=== PATIENT | male | born 1955 | race Caucasian/White ===

== ENCOUNTER 2023-10-30 11:00 | Emergency (ER) | payer SELFPAY ==
[2023-10-30] VITALS (15 sets, daily range): BP systolic 141–197; BP diastolic 95–120; PULSE 73–116; RESP 16–24; TEMP 36.6–36.8; O2SAT 96–100; BMI 24.0
--- NOTE | 2023-10-30 11:08 | DI.RAD.S_ITS ---
PROCEDURE: XR CHEST 1V INDICATIONS: chest pain TECHNIQUE: One view of the chest was acquired. COMPARISON: None. FINDINGS: Surgical changes and devices: None. Lungs and pleura: Lungs are clear. No pleural effusions or pneumothorax. Mediastinum: Mediastinal contours appear normal. Heart size is normal. Bones and chest wall: No suspicious bony lesions. Overlying soft tissues appear unremarkable. Metallic density near the left axilla is likely external to the patient. IMPRESSION: No acute cardiopulmonary abnormality is seen. Dictated by: Parvez Mcghee M.D. on 10/30/2023 at 10:28 Approved by: Parvez Mcghee M.D. on 10/30/2023 at 10:31
--- NOTE | 2023-10-30 11:26 | ED.CHESTPAIN ---
HPI - Chest Pain General Chief Complaint: Chest Pain Stated Complaint: CHEST PAIN BP HIGH Time Seen by Provider: 10/30/23 11:24 Source: patient and family Mode of arrival: Ambulatory Limitations: no limitations History of Present Illness HPI narrative: Patient is a 68-year-old male history of hypertension paroxysmal atrial fibrillation multiple TIAs on Eliquis presenting today with chest pain. He reports that he currently has a ZIO patch on and is followed by Dr. Kemp cardiology. He reports that this morning he went into AFib with RVR heart rate was in the 140s blood pressure was high. He took a metoprolol. He reports his chest pain is better. He states that while he was cooking breakfast this morning he had some chest discomfort it went to both arms. He got extremely weak and tired had to sit down. It lasted for about 1 hour. He is in atrial fibrillation heart rate is 100-120. Blood pressure is noted to be high. He says this morning when he had severe chest pain he had bilateral arm pain. As well. He reports that he was having some mild shortness of breath and orthopnea last night. But was able to sleep without any significant problem. Denies any lower extremity edema no significant dyspnea with exertion. No abdominal pain nausea or vomiting Patient reports [place] he got severely ill with COVID. At some point he had a seizure or syncopal episode he was admitted at [facility] where he reports he had chest pain. He would multiple EKGs that I am able to look at and does show sinus rhythm an echocardiogram shows an EF of 60-65%. He had a CT chest abdomen pelvis should not show any sort of acute abnormality. Related Data Home Medications Medication Instructions Recorded Confirmed apixaban 5 mg tablet (Eliquis) 5 mg PO BID 10/30/23 10/30/23 hydrochlorothiazide 10/30/23 losartan 25 mg tablet 25 mg PO DAILY PRN blood pressure 10/30/23 10/30/23 potassium chloride DAILY 10/30/23 Allergies Allergy/AdvReac Type Severity Reaction Status Date / Time No Known Drug Allergies Allergy Verified 10/30/23 11:20 Patient History Medical History Afib TIA (transient ischemic attack) Social History (Reviewed 05/19/24 @ 11:35 by SARAH Mckee Smoking Status: Never smoker Smoking Status: Never smoker Substance Use Type: does not use Exam Initial Vital Signs Initial Vital Signs: Vital Signs Temperature 97.8 F 10/30/23 11:10 Pulse Rate 116 H 10/30/23 11:10 Respiratory Rate 18 10/30/23 11:10 Blood Pressure 146/101 H 10/30/23 11:10 Pulse Oximetry 96 10/30/23 11:10 Oxygen Delivery Method Room Air 10/30/23 11:10 GENERAL: Alert well-appearing 68-year-old male and in no acute distress. HEENT: Head atraumatic,EOMI, pupils reactive, face symmetric, moist mucous membranes CARDIOVASCULAR: Irregularly irregular RESPIRATORY: Breath sounds equal bilaterally, no wheezes rales or rhonchi. ABDOMEN: Soft, nontender. Normoactive bowel sounds all 4 quadrants. No guarding or rebound. EXTREMITIES: Normal range of motion, no clubbing or edema. Neurovascularly intact NEUROLOGICAL: Alert and oriented x4.Normal gait and speech. SKIN: Warm, dry, no laceration, no petechiae, no rashes or lesions. Course Orders Ordered: ED Orders 10/30/23 11:08 XR chest 1V Stat EKG-12 Lead Stat 10/30/23 11:30 Complete Blood Count AUTO DIFF Stat Comprehensive Metabolic Panel Stat Lipase Stat Magnesium Stat PTT Partial Thromboplastin Arnol Stat Prothrombin Time INR Stat Troponin & CK Cardiac Panel Stat 10/30/23 13:28 Troponin I Stat Discontinued Medications Aspirin (Aspirin 81 Mg Chew Tab) 324 mg PO NOW ONE Stop: 10/30/23 11:09 Last Admin: 10/30/23 11:31 Dose: Not Given Documented By: Aspirin (Aspirin 81 Mg Chew Tab) 324 mg PO NOW ONE Stop: 10/30/23 12:26 Last Admin: 10/30/23 12:32 Dose: 324 mg Documented By: CARLA Heparin Sodium (Porcine) (Heparin 5,000 Unit/Ml Vial) 5,000 unit 60 unit/kg (5000 unit) IV NOW ONE Stop: 10/30/23 12:49 Last Admin: 10/30/23 13:13 Dose: 5,000 unit Documented By: CARLA Heparin Sodium/Dextrose (Heparin Drip) 25,000 unit in 500 mls @ 19.269 mls/hr IV CONT LAURA; Protocol Last Titration: 10/30/23 17:05 Dose: 12 units/kg/hr, 19.269 mls/hr Documented By: CARLA Co-signed By: FAUSTO Admin: 10/30/23 13:18 Dose: 12 units/kg/hr, 19.269 mls/hr Documented By: CARLA Co-signed By: CARLOS Vital Signs Vital signs: Vital Signs - 8 hr 10/30/23 12:00 10/30/23 12:00 10/30/23 12:30 Temperature Pulse Rate 77 75 Respiratory Rate 21 16 Blood Pressure 164/95 H Pulse Oximetry 99 99 10/30/23 13:00 10/30/23 13:30 10/30/23 13:30 Temperature Pulse Rate 78 92 H Respiratory Rate 22 21 Blood Pressure 177/111 H Pulse Oximetry 100 100 10/30/23 14:00 10/30/23 14:00 10/30/23 14:30 Temperature Pulse Rate 76 73 Respiratory Rate 23 17 Blood Pressure 164/100 H Pulse Oximetry 100 100 10/30/23 14:30 10/30/23 15:00 10/30/23 15:00 Temperature Pulse Rate 77 Respiratory Rate 17 Blood Pressure 141/97 H 162/95 H Pulse Oximetry 99 10/30/23 15:30 10/30/23 15:30 10/30/23 16:00 Temperature Pulse Rate 75 82 Respiratory Rate 17 19 Blood Pressure 168/100 H Pulse Oximetry 99 100 10/30/23 16:01 10/30/23 16:01 10/30/23 16:30 Temperature Pulse Rate 82 96 H Respiratory Rate 24 20 Blood Pressure 197/99 H Pulse Oximetry 100 100 10/30/23 16:30 10/30/23 16:36 10/30/23 16:36 Temperature 98.3 F Pulse Rate 100 H Respiratory Rate 18 Blood Pressure 165/120 H 161/105 H Pulse Oximetry 100 MDM - Chest Pain Lab Data 10/30/23 11:30 10/30/23 11:30 Labs: Lab Results 10/30/23 10/30/23 Range/Units 11:30 13:28 WBC 8.3 (4.5-11.0) X10^3/uL RBC 4.87 (4.5-5.9) X10^6/uL Hgb 14.7 (13.5-17.5) g/dL Hct 42.8 (41-53) % MCV 88.0 (80-100) fL MCH 30.2 (26-34) PG MCHC 34.3 (30-36) % RDW 13.3 (11.6-14.8) % Plt Count 266 (150-400) X10^3/uL Neut % (Auto) 77.3 H (50-75) % Lymph % (Auto) 14.4 L (25-40) % [place]lin % (Auto) 6.0 (3-14) % Eos % (Auto) 1.9 L (2-4) % Baso % (Auto) 0.4 (0-2) % Neut # (Auto) 6400 (8313-0999) /uL Lymph # (Auto) 1200 (6155-0290) /uL [place]lin # (Auto) 500 (0-900) /uL Eos # (Auto) 200 (0-450) /uL Baso # (Auto) 0 (0-100) /uL PT 17.3 H (9.4-12.5) SECONDS INR 1.5 H (0.9-1.3) APTT 41 H (25.1-36.5) SECONDS Sodium 140 (137-145) mmol/L Potassium 4.3 (3.4-5.1) mmol/L Chloride 103 (98-107) mmol/L Carbon Dioxide 30 (22-32) mmol/L BUN 17 (9-20) mg/dL Creatinine 0.92 (0.66-1.25) mg/dL Estimated GFR > 60 (>60) mL/min BUN/Creatinine Ratio 18.5 (6-22) Glucose 149 H (80-110) mg/dL Calcium 9.4 (8.4-10.2) mg/dL Magnesium 2.3 (1.6-2.3) mg/dL Total Bilirubin 1.4 H (0.2-1.3) mg/dL AST 77 H (17-59) IU/L ALT 15 (<50) IU/L Alkaline Phosphatase 97 (38-126) U/L Total Creatine Kinase 278 H (55-170) U/L Troponin I 3.250 H* 6.960 H* (0.01-0.034) ng/mL Total Protein 7.9 (6.3-8.2) g/dL Albumin 4.5 (3.5-5.0) g/dL Globulin 3.4 (1.7-4.1) g/dL Albumin/Globulin Ratio 1.3 (1.0-2.8) Lipase 56 (23-300) U/L Imaging Data Chest x-ray: Radiologist's Impression: PROCEDURE: XR CHEST 1V INDICATIONS: chest pain TECHNIQUE: One view of the chest was acquired. COMPARISON: None. FINDINGS: Surgical changes and devices: None. Lungs and pleura: Lungs are clear. No pleural effusions or pneumothorax. Mediastinum: Mediastinal contours appear normal. Heart size is normal. Bones and chest wall: No suspicious bony lesions. Overlying soft tissues appear unremarkable. Metallic density near the left axilla is likely external to the patient. IMPRESSION: No acute cardiopulmonary abnormality is seen. Dictated by: Parvez Mcghee M.D. on 10/30/2023 at 10:28 ECG Data Interpretation: Atrial fibrillation rate 101 with significant T-wave inversion in V2 and V3 Compared to previous EKGs [facility] which was normal sinus rhythm but still had persistent T-wave inversions in V2 and V3 MDM Narrative Medical decision making narrative: I discussed with patient about cardioversion. However his who is retired ICU nurse does not want him cardioverted stating that he will go right back into it he has not been cardioverted before. His rate is controlled remains in AFib. Chest pain has improved. Blood work reviewed: WBC 8.3, hemoglobin 14.7, hematocrit 42.8, platelets 266, INR 1.5, PTT 41, sodium 140 potassium 4.3, chloride 103, carbon dioxide 30, BUN 17, creatinine 0.9, glucose 149, bilirubin 1.4 AST 15 alk-phos 97, troponin 3.25 with repeat 6.96 Chest x-ray: No acute cardiopulmonary process EKG: Atrial fibrillation rate controlled with T-wave inversion in V2 and V3 similar to previous EKGs compared [facility] but no priors here Consultation: 12:45 Dr. Draper on-call cardiology updated patient's symptoms test results recommends heparin and transfer aware of Eliquis and AFib. 15:15 Dr. Wilson, hospitalist at [facility] for skin 2, updated patient's symptoms test results kindly accepts patient requests that we speak with Cardiology 15:30 Dr. Barron cardiology patient's symptoms test results aware Treatments: Aspirin, heparin Discussion: Patient presents with chest pain with radiation to both arms. He did have an episode of AFib with RVR with documented heart rate in the 140s an elevated blood pressure. He is currently chest pain-free now. Troponin is found to be elevated in the positive range with rising trop initially 3.25 now 6.9. He has no further ongoing chest pain heart rate is controlled blood pressure has improved as well. Patient's is a retired ICU nurse she did not want him cardioverted absolutely refused. She also does not really want him to have any sort of stents or CABG. However after further discussion he is agreeable to cardiac catheterization possibly a stent but is very hesitant to have a CABG. They are both agreeable to go to hospital have evaluation cardiac catheterization and stent if needed. Multiple hospitals were called [facility] is currently boarding there is no room. Many hospitals or not even taking patients for wait list Fortunately [facility] has a bed available Critical Care Time Critical Care Time Critical Care Time: Yes Total Critical Care Time: 45 Attestation: The high probability of a clinically significant, sudden or life threatening deterioration of the [cardiovascular] system(s) required my full and direct attention, intervention and personal management. The aggregate critical care time was [45] minutes. This time is in addition to time spent performing reported procedures but includes the following: [x] Data Review and interpretation [x] Patient assessment and monitoring of vital signs [x] Documentation [x] Medication orders and management Discharge Plan Departure Patient Disposition: [facility] Clinical Impression: Non-ST elevation SC (NSTEMI) Prescriptions: No Action Eliquis 5 mg tablet 5 mg PO BID potassium chloride 20 meq DAILY Rx Instructions: nightly losartan 25 mg tablet 25 mg PO DAILY PRN (Reason: blood pressure) Patient Comments: AM hydrochlorothiazide 12.5 mg Rx Instructions: 12.5mg at night
[2023-10-30 11:38] LABS: Add Manual Diff / Slide Review NO; Basophils Absolute Auto 0 /uL (0-100); Basophils Percent Auto 0.4 % (0-2); Eosinophils Absolute Auto 200 /uL (0-450); Eosinophils Percent Auto 1.9 % (2-4); Hematocrit 42.8 % (41-53); Hemoglobin 14.7 g/dL (13.5-17.5); Lymphocytes Absolute Auto 1200 /uL (1100-4500); Lymphocytes Percent Auto 14.4 % (25-40); Mean Corpuscular HGB Conc 34.3 % (30-36); Mean Corpuscular Hemoglobin 30.2 PG (26-34); Monocytes Absolute Auto 500 /uL (0-900); Neutrophils Absolute Auto 6400 /uL (1500-7000); Neutrophils Percent Auto 77.3 % (50-75); Platelet Count 266 X10^3/uL (150-400); Red Blood Cell Count 4.87 X10^6/uL (4.5-5.9); Red Cell Distribution Width 13.3 % (11.6-14.8); White Blood Cell Count 8.3 X10^3/uL (4.5-11.0)
[2023-10-30 11:56] LABS: HEMOLYSIS < 15 (0-50)
[2023-10-30 12:01] LABS: Alanine Aminotransferase 15 IU/L (<50); Albumin 4.5 g/dL (3.5-5.0); Albumin Globulin Ratio 1.3 (1.0-2.8); Alkaline Phosphatase 97 U/L (38-126); Aspartate Aminotransferase 77 IU/L (17-59); BUN Creatinine Ratio 18.5 (6-22); Bilirubin Total 1.4 mg/dL (0.2-1.3); Blood Urea Nitrogen 17 mg/dL (9-20); Calcium 9.4 mg/dL (8.4-10.2); Carbon Dioxide 30 mmol/L (22-32); Chloride 103 mmol/L (98-107); Creatine Kinase 278 U/L (55-170); Estimated Glomerular Filt Rate > 60 mL/min (>60); Globulin 3.4 g/dL (1.7-4.1); Glucose 149 mg/dL (80-110); Lipase 56 U/L (23-300); Magnesium 2.3 mg/dL (1.6-2.3); Potassium 4.3 mmol/L (3.4-5.1); Sodium 140 mmol/L (137-145); Total Protein 7.9 g/dL (6.3-8.2)
[2023-10-30 12:07] LABS: INR 1.5 (0.9-1.3); Prothrombin Time 17.3 SECONDS (9.4-12.5)
[2023-10-30] MEDS: ASPIRIN 81 MG CHEW TAB 324 MG PO (12:32)
[2023-10-30 12:40] LABS: PTT Partial Thromboplastin Tim 41 SECONDS (25.1-36.5)
[2023-10-30] MEDS: HEPARIN 5,000 UNIT/ML VIAL 5000 UNIT IV (13:13)
[2023-10-30] MEDS: HEPARIN DRIP 25,000 UNIT/500 ML IV.SOLN 19.269 UNIT IV (13:18)
--- NOTE | 2023-10-30 14:01 | PC.NURSE ---
[facility]: [facility] currently does not have available bed. [facility] beds but pt placed on list. [place] / [place]: wait is greater than 24hrs [facility]: Likely no bed today but pt still placed on list. [place]: No bed for >24hrs [place]: Boarding in house and cannot accept outside patients at this time.
--- NOTE | 2023-10-30 16:01 | PC.NURSE ---
accpeted at [facility] 206 report # [phone]
--- NOTE | 2023-10-30 17:18 | PC.NURSE ---
pt states he remains free from chest pain. Pt reports symptom resolvment for the most part. no signs of bleeding. respirations regular and unlabored. pupils 2mm equal and reactive
== END 2023-10-30 17:22 | disposition short-term general hospital (02) ==
PROVIDERS: Emergency Provider Emergency Medicine
DX: I21.4 Non-ST elevation (NSTEMI) myocardial infarction (principal); I48.91 Unspecified atrial fibrillation
CPT/HCPCS: 36415; 71045; 80053; 82550; 83690; 83735; 84484; 85025; 85610; 85730; 93005; 96365; 96366; 99284; 99291; J1644